=== PATIENT | male | born 1985 | race Caucasian/White ===

== ENCOUNTER 2021-11-07 06:11 | Emergency (ER) | payer OTHER ==
[~2021-11-07] VITALS: Ht 185.4 cm; Wt 81.6 kg
[2021-11-07] MEDS ORDERED: ZITHROMAX250 MG PO (06:51)
== END 2021-11-07 06:55 | disposition home or self-care (01) ==
LOC: FSED 06:49
DX: J02.9 Acute pharyngitis, unspecified (principal); R05.9 Cough, unspecified
CPT/HCPCS: 83518; 99282